=== PATIENT | male | born 1995 | race Caucasian/White ===

== ENCOUNTER → 2016-06-30 | Outpatient (REF) | payer OTHER | LOC: M LAB REF 17:12 | PROVIDERS: ATTEND Physician Assistant | DX: R50.9 Fever, unspecified (principal) ==

== ENCOUNTER → 2016-12-24 | Outpatient (CLI) | payer OTHER ==
[2016-12-24 13:27] LABS: BASO % 0.5 % (0.0-1.0); EOS # 0.1 K/mm3 (0.0-0.50); EOS % 1.2 % (0.0-3.0); LARGE UNSTAINED CELL # 0.1 K/mm3 (0.0-0.4); LYMPH # 2.4 K/mm3 (1.5-6.5); LYMPH % 37.9 % (24.0-44.0); MEAN CORPUSCULAR HEMOGLOBIN 28.8 pg (27.0-33.0); MEAN CORPUSCULAR HGB CONC 34.4 g/dl (32.0-36.5); MEAN CORPUSCULAR VOLUME 83.5 fl (80.0-96.0); MONO # 0.3 K/mm3 (0.0-0.8); MONO % 4.6 % (0.0-5.0); NEUTROPHILS # 3.3 K/mm3 (1.8-7.7); NEUTROPHILS % 53.9 % (36.0-66.0); PLATELET COUNT, AUTOMATED 288 k/mm3 (150-450); RED CELL DISTRIBUTION WIDTH 12.8 % (11.5-14.5); WHITE BLOOD COUNT 6.1 K/mm3 (4.0-10.0)
[2016-12-24 13:36] LABS: ALBUMIN 4.3 GM/DL (3.2-5.2); ALKALINE PHOSPHATASE 66 U/L (45-117); ALT/SGPT 32 U/L (12-78); ANION GAP 8 MEQ/L (8-16); AST/SGOT 17 U/L (15-37); BILIRUBIN,TOTAL 0.7 MG/DL (0.2-1.0); BLOOD UREA NITROGEN 15 MG/DL (7-18); CALCIUM LEVEL 9.5 MG/DL (8.5-10.1); CARBON DIOXIDE LEVEL 28 MEQ/L (21-32); CHLORIDE LEVEL 104 MEQ/L (98-107); CHOLESTEROL LEVEL 187 MG/DL (<200); CREATININE FOR GFR 1.09 MG/DL (0.70-1.30); GLOMERULAR FILTRATION RATE > 60.0 (>60); GLUCOSE, FASTING 73 MG/DL (70-105); POTASSIUM SERUM 4.4 MEQ/L (3.5-5.1); SODIUM LEVEL 140 MEQ/L (136-145); TOTAL PROTEIN 7.6 GM/DL (6.4-8.2); TRIGLYCERIDES LEVEL 63 MG/DL (<150)
== END ==
LOC: M WUC 08:34
PROVIDERS: ATTEND Nurse Practitioner Family
DX: Z00.00 Encounter for general adult medical examination without abnormal findings (principal); Z13.220 Encounter for screening for lipoid disorders

== ENCOUNTER → 2017-01-18 | Outpatient (CLI) | payer BC, OTHER ==
--- NOTE | 2017-01-18 12:23 | REP ---
LEFT CLAVICLE, TWO VIEWS: HISTORY: Contusion. There is a nondisplaced fracture of the middle third of the left clavicle. There is no dislocation. The joint spaces are normal in appearance. IMPRESSION: Nondisplaced fracture of the middle third of the left clavicle. Signed by Feroz Benito MD 01/18/2017 12:28 P
== END ==
LOC: M WUC 11:17
PROVIDERS: ATTEND Physician Assistant
DX: S40.012A Contusion of left shoulder, initial encounter (principal); X58.XXXA Exposure to other specified factors, initial encounter; Y92.89 Other specified places as the place of occurrence of the external cause; Y99.9 Unspecified external cause status

== ENCOUNTER → 2017-03-05 | Outpatient (CLI) | payer OTHER, BC ==
--- NOTE | 2017-03-05 15:53 | REP ---
Left clavicle two views: There is a minimally displaced midshaft fracture. There is no widening of the acromioclavicular joint. There are no calcifications or foreign bodies. The glenohumeral joint is unremarkable. Signed by Dyllan Gant MD 03/05/2017 03:44 P
== END ==
LOC: M WUC 14:42
PROVIDERS: ATTEND Physician Assistant
DX: M25.519 Pain in unspecified shoulder (principal)

== ENCOUNTER 2018-06-20 10:58 | Inpatient (IN) | payer BC, OTHER ==
[~2018-06-20] VITALS: Ht 177.8 cm; Wt 114.8 kg
[2018-06-20] MEDS ORDERED: ALEV220C2 PO (11:13)
[2018-06-20 11:29] LABS: BASO % 0.2 % (0.0-1.0); HEMATOCRIT 46.2 % (42.0-52.0); HEMOGLOBIN 15.6 g/dl (13.5-17.5); LYMPH # 1.3 10^3/uL (1.5-6.5); LYMPH % 7.7 % (24.0-44.0); MEAN CORPUSCULAR HEMOGLOBIN 27.9 pg (27.0-33.0); MEAN CORPUSCULAR HGB CONC 33.8 g/dl (32.0-36.5); MEAN CORPUSCULAR VOLUME 82.5 fl (80.0-96.0); MONO # 0.8 10^3/uL (0.0-0.8); MONO % 4.7 % (0.0-5.0); NEUTROPHILS # 14.3 10^3/uL (1.8-7.7); NEUTROPHILS % 86.9 % (36.0-66.0); PLATELET COUNT, AUTOMATED 249 10^3/uL (150-450); WHITE BLOOD COUNT 16.4 10^3/uL (4.0-10.0)
[2018-06-20] MEDS ORDERED: NS 3,270 ML in APPROPRIATE DILUENT 1 EA IV ONE (11:30)
[2018-06-20] MEDS ORDERED: ACETAMINOPHEN 325 MG TAB PO ONE ×2 (11:30→16:15)
[2018-06-20] MEDS ORDERED: KETOROLAC 30 MG/ML VIAL (J1885) IV ONE (11:30)
[2018-06-20] MEDS ORDERED: ONDANSETRON 4MG/2ML VIAL (J2405) IV ONE (11:30)
[2018-06-20 11:56] LABS: INFLUENZA A AMPLIFICATION NEGATIVE (NEGATIVE); INFLUENZA B AMPLIFICATION NEGATIVE (NEGATIVE)
[2018-06-20 12:11] LABS: ALBUMIN 3.7 GM/DL (3.2-5.2); BILIRUBIN,DIRECT 0.2 MG/DL (0.0-0.2); BILIRUBIN,TOTAL 0.6 MG/DL (0.2-1.0); CALCIUM LEVEL 8.7 MG/DL (8.5-10.1); CREATININE FOR GFR 1.58 MG/DL (0.70-1.30); GLOMERULAR FILTRATION RATE 57.6 (>60); POTASSIUM SERUM 3.3 MEQ/L (3.5-5.1); TOTAL PROTEIN 7.9 GM/DL (6.4-8.2)
[2018-06-20] MEDS ORDERED: ISOVUE-370 76% 100ML VIAL (Q9967) As Ordered ONE (12:19)
--- NOTE | 2018-06-20 12:53 | REP ---
Clinical: Periumbilical and lower abdominal pain. Technique: Slow contrast enhanced images from the lung bases to the pubic symphysis using 100 ml Isovue 370 intravenous contrast material with coronal and sagittal re-formations. Findings: Mucosal thickening involving the colon and predominantly the ascending through transverse colon with pericolonic inflammatory stranding and few scattered pericecal lymph nodes is most compatible with infectious/inflammatory colitis. Normal terminal ileum and appendix are identified. Small bowel is unremarkable. No obstruction. No free air. Liver, spleen, pancreas, gallbladder, bilateral adrenal glands and kidneys are normal. Pelvis demonstrates normal bladder and age appropriate prostate/seminal vesicles. Small amount of free fluid in the pelvis consistent with the above mentioned acute colitis. Abdominal aorta and vasculature normal. Surrounding musculoskeletal structures are intact. Lung bases are clear. Impression: Findings most compatible with acute infectious/inflammatory colitis predominantly involving the cecum through transverse colon. Electronically Signed by Dario Sarmiento MD 06/20/2018 12:46 P
[2018-06-20 14:12] LABS: BILIRUBIN, URINE MANUAL NEGATIVE (NEGATIVE); GLUCOSE, URINE (UA) MANUAL NEGATIVE (NEGATIVE); KETONE, URINE MANUAL NEGATIVE (NEGATIVE); UROBILINOGEN, URINE MANUAL NORMAL (NORMAL)
[2018-06-20 14:19] LABS: BACTERIA, URINE NONE SEEN; HYALINE CAST, URINE NONE SEEN /lpf (0-1); RBC, URINE 0-1 /hpf (0-3); SQUAMOUS EPITHELIAL CELL URINE SMALL AMOUNT /hpf (SMALL AMT)
[2018-06-20] MEDS ORDERED: VANCOMYCIN HCL 1,000 MG, VIAL MATE ADAPTER 1 EACH in D5W 250 ML IV ONE ×2 (15:15→22:00)
[2018-06-20] MEDS ORDERED: AZITHROMYCIN INJ 500 MG, VIAL MATE ADAPTER 1 EACH in D5W 250 ML IV ONE (15:15)
[2018-06-20] MEDS ORDERED: PIPERACILLIN/TAZOBACTAM SOD 4.5 GM in D5W MINI-BAG PLUS 50 ML IV ONE (15:15)
[2018-06-20] MEDS ORDERED: ALEV220T22 PO (15:51)
[2018-06-20] MEDS ORDERED: ONDANSETRON 4 MG TAB (S0181) PO PRN (16:30)
[2018-06-20] MEDS ORDERED: ACETAMINOPHEN TAB 650MG DOSE (2X325MG) PO PRN (16:30)
[2018-06-20] MEDS ORDERED: NS 1,000 ML IV ONE (18:00)
--- NOTE | 2018-06-20 18:33 | REP ---
Clinical: Fever and sepsis . Comparison: 06/30/2016 . Findings: The mediastinum and cardiac silhouette are stable and within normal limits for portable technique. The lung reyes are clear without acute consolidation, effusion, or pneumothorax. Skeletal structures are intact. Impression: No acute cardiopulmonary process appreciated. Electronically Signed by Dario Sarmiento MD 06/20/2018 06:23 P
[2018-06-20] MEDS ORDERED: VANCOMYCIN HCL 750 MG, VIAL MATE ADAPTER 1 EACH in D5W 250 ML IV SCH (18:45)
[2018-06-20] MEDS ORDERED: POTASSIUM CHLORIDE 10 MEQ SR TABLET PO ONE (18:45)
--- NOTE | 2018-06-20 18:46 | HPEPDOC ---
General Date of Admission Jun 20, 2018 at 15:23 Primary Care Physician: [facility] Attending Physician: EH PHOENIX MD Chief Complaint The patient is a 23-year-old male admitted with a reason for visit of Diarrhea,Sepsis. History of Present Illness 23-year-old male with past medical history presents to the ER for 3 days of fever, chills, watery diarrhea, lower abdominal cramping. He denies any recent travel or changes in meds or sick contacts, however states that his symptoms started a few hours after eating out at the [employer] on Wednesday. He ate nachos, cheese sauce, jalapenos, and afterwards started experiencing a headache, which then worsened with diarrhea on Wednesday morning. He believes his culprit could also possibly be spoiled milk which he accidentally drank on Wednesday afternoon "it had curds in it and was straight from a cow." He states his brother at home also has similar but milder symptoms at home. In ER, noted to be septic and positive for EPEC & Campylobacter. Will be admitted to Hospitalist service. Home Medications Scheduled PRN (Aleve Arthritis) 220 Mg Tab, 220 MG PO BID PRN for HEADACHE, (Reported) Allergies Coded Allergies: No Known Allergies (Verified , 10/30/02) Past Medical History Medical History none Surgical History Left distal radius shaft fracture '02 Family History HTN, DM, HLD, CAD, cancer on both sides Social History Denies alcohol or tobacco or illicit substances. Is sexually active, unprotected sex with 4 partners since age 16 Review of Systems Other systems Constitutional: Admits fever, & chills. No night sweats, weight loss Eyes: Denies eye pain, vision change ENT: Admits headaches. No ear pain, dysphagia Skin: Denies any rashes or lesions Pulmonary: Denies dyspnea, cough, wheezing Cardiac: Denies chest pain, palpitations. Admits lightheadedness GI: Denies nausea, vomiting. Admits crampy abdominal pain with diarrhea. Pt unsure of melena or hematochezia : Denies dysuria, hematuria Neurologic: Denies numbness/tingling Physical Examination Other physical findings General exam: Mildly uncomfortable, A&O 3, fully conversant Eye exam: PERRLA, EOMI ENT: Atraumatic, normocephalic, mucous membranes dry, tongue midline, no pharyngeal edema Neck: Supple, no JVD, no adenopathy Cardiac: Tachycardic in regular rhythm, normal S1 & S2, no murmurs Respiratory: CTAB, good air exchange, no wheezing, rhonchi, or rales Abdomen: normoactive bowel sounds, soft, mildly tender to palpation bilateral lower quadrants, nondistended Extremity: 2+ radial pulses, no edema, clubbing, cyanosis, or tenderness Skin: [place], warm, dry, no visible rash or lesions Neuro: Strength 5/5 x4, normal tone, sensation intact, normal speech, CN III-XII intact Psych: Normal mood and affect Vital Signs Vital Signs Date Time Temp Pulse Resp B/P (MAP) Pulse Ox O2 Delivery O2 Flow Rate FiO2 06/20/18 17:31 101.5 108 20 140/78 (98) 98 Room Air Laboratory Data Labs 24H Laboratory Tests 2 06/20/18 11:19: Immature Granulocyte % (Auto) 0.5, White Blood Count 16.4H, Red Blood Count 5.60, Hemoglobin 15.6, Hematocrit 46.2, Mean Corpuscular Volume 82.5, Mean C orpuscular Hemoglobin 27.9, Mean Corpuscular Hemoglobin Concent 33.8, Red Cell Distribution Width 12.4, Platelet Count 249, Neutrophils (%) (Auto) 86.9H, Lymphocytes (%) (Auto) 7.7L, Monocytes (%) (Auto) 4.7, Eosinophils (%) (Auto) 0.0, Basophils (%) (Auto) 0.2, Neutrophils # (Auto) 14.3H, Lymphocytes # (Auto) 1.3L, Monocytes # (Auto) 0.8, Eosinophils # (Auto) 0.0, Basophils # (Auto) 0.0, Nucleated Red Blood Cells % (auto) 0.0, Anion Gap 10, Glomerular Filtration Rate 57.6L, Calcium Level 8.7, Aspartate Amino Transf (AST/SGOT) 27, Alanine Aminotransferase (ALT/SGPT) 39, Alkaline Phosphatase 84, Total Bilirubin 0.6, Direct Bilirubin 0.2, Total Protein 7.9, Albumin 3.7, Albumin/Globulin Ratio 0.88L, Lipase 115, Influenza Type A (RT-PCR) NEGATIVE, Influenza Type B (RT-PCR) NEGATIVE 06/20/18 11:39: Lactic Acid Level 1.4 06/20/18 13:51: Urine Color (MICHAEL) YELLOW, Urine Appearance (MICHAEL) CLEAR, Urine pH (MICHAEL) 6.5, Urine Specific [place] (MICHAEL) > 1.060H, Urine Protein 1+H, Bedside Urine Glucose (UA) NEGATIVE, Bedside Urine Ketones (LAB) NEGATIVE, Bedside Urine Blood NEGATIVE, Bedside Urine Nitrite (LAB) NEGATIVE, Bedside Urine Bilirubin (LAB) NEGATIVE, Bedside Urine Urobilinogen (LAB) NORMAL, Bedside Urine Leukocyte Esterase (L NEGATIVE, Urine Sediment Examination PERFORMED, Urine RBC 0-1, Urine WBC 1-3, Urine Squamous Epithelial Cells SMALL AMOUNT, Urine Bacteria NONE SEEN, Urine Hyaline Casts NONE SEEN, Microscopic Urinalysis Comment CBC/BMP Laboratory Tests 06/20/18 11:19 Red Blood Count 5.60, Mean Corpuscular Volume 82.5, Mean Corpuscular Hemoglobin 27.9, Mean Corpuscular Hemoglobin Concent 33.8, Red Cell Distribution Width 12.4, Neutrophils (%) (Auto) 86.9 H, Lymphocytes (%) (Auto) 7.7 L, Monocytes (%) (Auto) 4.7, Eosinophils (%) (Auto) 0.0, Basophils (%) (Auto) 0.2, Neutrophils # (Auto) 14.3 H, Lymphocytes # (Auto) 1.3 L, Monocytes # (Auto) 0.8, Eosinophils # (Auto) 0.0, Basophils # (Auto) 0.0 Microbiology Microbiology 06/20/18 Blood Culture, Received Pending 06/20/18 Blood Culture, Received Pending 06/20/18 Gastrointestinal Tract Panel (PCR) - Final, Complete Campylobacter Enteropathogenic E.coli Assessment/Plan Sepsis 2/ Infectious colitis Tachycardic, fever 101, WBC at 16 GI panel positive for Campylobacter and enteropathogenic Escherichia coli, supported by CT of abdomen and pelvis. Continue supportive care on aggressive IV fluid hydration as he is dry on exam, Tylenol and ibuprofen for pain control. Given that he is not much improved after initial doses of broad-spectrum antibiotics in the ER, will continue on Vanco, Zosyn, azithromycin and de- escalation pending cultures. MRSA screen is pending. Monitor on full liquids diet, and plan to decrease IV fluids as he improves. Follow electrolytes and closely monitor for improvement. Given that he is also having lower pelvic pain and septic, there is concern for possible HIV associated with these GI infections. After further discussing with patient, he admits to being sexually active and having unprotected sex with multiple different partners. He is agreeable to getting tested for HIV. Acute kidney injury Normal renal function at baseline with CR of 0.9. CR is 1.5 on admission likely 2/2 dehydration and volume loss through diarrhea. Continue aggressive IV hydration and liquid diet. Hyponatremia Mild, level at 135 on admission likely 2/2 dehydration. Hydrate with IV and po intake. Hypokalemia Likely 2/2 GI losses continue supplementation monitoring of electrolytes DVT PPI X: TEDs SCDs Disposition: Admit to hospitalist service and closely monitor in PCU. Plan / VTE VTE Prophylaxis Ordered?: Yes GME ATTESTATION GME ATTESTATION My faculty preceptor for this patient encounter was physically present during the encounter and was fully available. All aspects of the patient interview, examination, medical decision making process, and medical care plan development were reviewed and approved by the faculty preceptor. The faculty preceptor is aware and concurs with the plan as stated in the body of this note and will attest to such by his/her cosignature. Attending Note Attending Note I have both independently examined this patient as well as reviewed the H&P. I have discussed with the resident the findings and plan of treeatment as documented in the resident's note TEMO DAVIS DO Jun 20, 2018 18:46 EH PHOENIX MD Jun 20, 2018 20:46
[2018-06-20] MEDS: NS 1,000 ML IV SCH ×2 (19:56→22:09)
[2018-06-20] MEDS: IBUPROFEN 600 MG TAB PO PRN (20:02)
[2018-06-20 21:35] VITALS: BP 133/69
--- NOTE | 2018-06-20 23:44 | PHACANCOPD ---
PHARMACY VANCOMYCIN DOSING Pt Demographics Demographics Patient Age:23 , Weight:116.100 , Gender: male Events Past 24 Hours Events Past 24 Hours: NO: Dialysis, Diuretic Therapy, Change in CrCl, Fever, Elevation in WBC, Pending Diagnostics, Pending Procedures, Other Vancomycin Vancomycin indication: SEPSIS Vancomycin Target Ranges: 15-20 mcg/ml Vancomycin Load Y/N: Yes Load Dose Date Time Vancomycin Load Dose: 2GM Date: 06/20/18 Time: 9223-4328 Vancomycin Dose Date: 06/21/18. Current Vancomycin Dose: [1GM IV Q12H (start 08:00)] Intermittent Dosing?: No Labs Labs Laboratory Tests 06/20/18 11:19 Red Blood Count 5.60, Mean Corpuscular Volume 82.5, Mean Corpuscular Hemoglobin 27.9, Mean Corpuscular Hemoglobin Concent 33.8, Red Cell Distribution Width 12.4, Neutrophils (%) (Auto) 86.9 H, Lymphocytes (%) (Auto) 7.7 L, Monocytes (%) (Auto) 4.7, Eosinophils (%) (Auto) 0.0, Basophils (%) (Auto) 0.2, Neutrophils # (Auto) 14.3 H, Lymphocytes # (Auto) 1.3 L, Monocytes # (Auto) 0.8, Eosinophils # (Auto) 0.0, Basophils # (Auto) 0.0 Micro Microbiology 06/20/18 Blood Culture, Received Pending 06/20/18 Blood Culture, Received Pending 06/20/18 Gastrointestinal Tract Panel (PCR) - Final, Complete Campylobacter Enteropathogenic E.coli Creatinine Clearance Date:06/20/18. Creatinine Clearance: [>60 ml/min]. Assessment and Plan Maintaining Current Dose?: Yes Reason for dose change: No Dose Change Pharmacist Note Pharmacist Note Date: 06/20/18. PharmD note: VANCO 2GM SLOW LOAD VIA THE ER. FOLLOWED BY VANCO 1GM IV Q12H STARTING AT 8AM 06/21/18. A VANCO TROUGH WILL BE ORDERED WHEN AT [facility] Jun 20, 2018 23:44
[2018-06-21] VITALS (7 sets, daily range): BP systolic 116–145; BP diastolic 60–92
[2018-06-21] MEDS: PIPERACILLIN/TAZOBACTAM SOD 3.375 GM in D5W MINI-BAG PLUS 50 ML IV SCH ×2 (02:03→05:34)
[2018-06-21] MEDS: NS 1,000 ML IV SCH ×2 (05:29→15:29)
[2018-06-21 05:53] LABS: HEMATOCRIT 38.5 % (42.0-52.0); MEAN CORPUSCULAR HEMOGLOBIN 27.4 pg (27.0-33.0); MEAN CORPUSCULAR VOLUME 83.2 fl (80.0-96.0); RED BLOOD COUNT 4.63 10^6/uL (4.30-6.10); WHITE BLOOD COUNT 6.5 10^3/uL (4.0-10.0)
[2018-06-21 05:58] LABS: HEMOGLOBIN 12.7 g/dl (13.5-17.5); PLATELET COUNT, AUTOMATED 147 10^3/uL (150-450)
[2018-06-21 06:23] LABS: BLOOD UREA NITROGEN 10 MG/DL (7-18); CALCIUM LEVEL 7.7 MG/DL (8.5-10.1); CARBON DIOXIDE LEVEL 24 MEQ/L (21-32); CHLORIDE LEVEL 110 MEQ/L (98-107); CREATININE FOR GFR 1.19 MG/DL (0.70-1.30); GLOMERULAR FILTRATION RATE > 60.0 (>60); GLUCOSE, FASTING 95 MG/DL (70-100); MAGNESIUM LEVEL 1.7 MG/DL (1.8-2.4); PHOSPHORUS LEVEL 2.3 MG/DL (2.5-4.9); POTASSIUM SERUM 3.7 MEQ/L (3.5-5.1); SODIUM LEVEL 141 MEQ/L (136-145)
[2018-06-21] MEDS ORDERED: CALCIUM CARBONATE 500 MG CHEW U/D PO ONE (08:00)
[2018-06-21] MEDS ORDERED: MAGNESIUM OXIDE 400 MG TAB (MAG-OX) PO ONE (08:00)
[2018-06-21] MEDS ORDERED: VANCOMYCIN HCL 1,000 MG, VIAL MATE ADAPTER 1 EACH in D5W 250 ML IV SCH (08:00)
[2018-06-21] MEDS ORDERED: POTASSIUM PHOSPHATE INJ 20 MMOL in D5W 250 ML IV ONE (09:00)
[2018-06-21] MEDS ORDERED: PENCICLOVIR 1% CREAM 5GM TOP PRN (09:30)
[2018-06-21] MEDS: IBUPROFEN 600 MG TAB PO PRN (12:23)
--- NOTE | 2018-06-21 14:09 | IPNPDOC ---
Text Note Date of Service The patient was seen on 06/21/18. NOTE S: Pt examined at bedside. Feeling much improved, no longer febrile, and lower abdominal cramping is almost fully resolved. However, diarrhea persists. He denies any blood in stools. Tolerating liquid diet well, but does not want to attempt a more advanced diet as of yet. No issues overnight. PE: General exam: NAD, resting comfortably, A&O 3, fully conversant Eye exam: PERRLA, EOMI ENT: Atraumatic, normocephalic, MMM Cardiac: RRR, normal S1 & S2, no murmurs Respiratory: CTAB, good air exchange, no wheezing, rhonchi, or rales Abdomen: normoactive bowel sounds, soft, ND, minimally tender to palpation bilateral lower quadrants Extremity: 2+ radial pulses, no edema, clubbing, cyanosis, or tenderness Skin: [place], warm, dry, no visible rash or lesions Psych: Normal mood and affect A/P: Infectious colitis No longer septic. Continue IV Azithro and supportive care for positive Campylobacter & enteropathogenic Escherichia coli Patient tolerating liquid diet well, however does not want to attempt a more advanced diet yet. He has been encouraged to try solid food later today. Until then, will continue IVF as he continues to have diarrhea today Acute kidney injury Resolved with IVF Hypovolemic Hyponatremia Resolved with IVF and by mouth intake Metabolic derangements Likely 2/2 GI losses Hypokalemia is resolved with supplementation from admission. As noted to be hypocalcemic, hypophosphatemic, and hypomagnesemic today. All supplemented and will recheck tomorrow DVT PPI X: TEDs SCDs Disposition: Pending clinical improvement. Likely discharge 24-48 hours. VS,Fishbone, I+O VS, Fishbone, I+O Laboratory Tests 06/21/18 05:34 Red Blood Count 4.63, Mean Corpuscular Volume 83.2, Mean Corpuscular Hemoglobin 27.4, Mean Corpuscular Hemoglobin Concent 33.0, Red Cell Distribution Width 12.6 , Calcium Level 7.7 L Vital Signs Date Time Temp Pulse Resp B/P (MAP) Pulse Ox O2 Delivery O2 Flow Rate FiO2 06/21/18 12:00 98.8 87 17 132/76 (94) 96 06/20/18 18:22 Room Air I&O- Last 24 Hours up to 6 AM 06/21/18 06:00 Intake Total 3270 ml Output Total 0 ml Balance 3270 ml GME ATTESTATION GME ATTESTATION My faculty preceptor for this patient encounter was physically present during the encounter and was fully available. All aspects of the patient interview, examination, medical decision making process, and medical care plan development were reviewed and approved by the faculty preceptor. The faculty preceptor is aware and concurs with the plan as stated in the body of this note and will attest to such by his/her cosignature. TEMO DVAIS DO Jun 21, 2018 14:09
[2018-06-21] MEDS: AZITHROMYCIN INJ 500 MG, VIAL MATE ADAPTER 1 EACH in D5W 250 ML IV SCH (18:05)
[2018-06-22] MEDS: NS 1,000 ML IV SCH ×3 (05:31→21:40)
[2018-06-22] MEDS: IBUPROFEN 600 MG TAB PO PRN ×2 (05:31→17:07)
[2018-06-22 06:00] VITALS: BP 131/76
[2018-06-22 06:39] LABS: HEMATOCRIT 35.4 % (42.0-52.0); HEMOGLOBIN 12.1 g/dl (13.5-17.5); MEAN CORPUSCULAR HEMOGLOBIN 27.6 pg (27.0-33.0); MEAN CORPUSCULAR HGB CONC 34.2 g/dl (32.0-36.5); MEAN CORPUSCULAR VOLUME 80.6 fl (80.0-96.0); PLATELET COUNT, AUTOMATED 166 10^3/uL (150-450); RED BLOOD COUNT 4.39 10^6/uL (4.30-6.10); WHITE BLOOD COUNT 6.4 10^3/uL (4.0-10.0)
[2018-06-22 07:23] LABS: BLOOD UREA NITROGEN 6 MG/DL (7-18); CALCIUM LEVEL 8.3 MG/DL (8.5-10.1); CARBON DIOXIDE LEVEL 25 MEQ/L (21-32); CHLORIDE LEVEL 109 MEQ/L (98-107); CREATININE FOR GFR 0.93 MG/DL (0.70-1.30); GLOMERULAR FILTRATION RATE > 60.0 (>60); GLUCOSE, FASTING 99 MG/DL (70-100); MAGNESIUM LEVEL 1.8 MG/DL (1.8-2.4); PHOSPHORUS LEVEL 2.3 MG/DL (2.5-4.9); POTASSIUM SERUM 3.5 MEQ/L (3.5-5.1); SODIUM LEVEL 141 MEQ/L (136-145)
[2018-06-22] MEDS ORDERED: K-PHOS ORIGINAL (POT.ACID PHOSPHATE) 500MG TAB PO ONE (08:00)
[2018-06-22] MEDS ORDERED: POTASSIUM PHOSPHATE INJ 20 MMOL in D5W 250 ML IV ONE (09:00)
--- NOTE | 2018-06-22 10:45 | IPNPDOC ---
Text Note Date of Service The patient was seen on 06/22/18. NOTE S: Pt examined at bedside. Has been downgraded to MedSurg and overall doing b shital. Abd cramping has fully resolved, but he still does not have an appetite and is mostly drinking fluids and does not want to advance diet yet. Noted to be febrile 101.8 this am, and still having persistent diarrhea. Still requiring IVF and electrolyte supplementation. PE: General exam: NAD, resting comfortably, A&O 3, fully conversant Eye exam: PERRLA EOMI ENT: Atraumatic, normocephalic, MMM Cardiac: RRR, normal S1 & S2, no murmurs Respiratory: CTAB, good air exchange, no wheezing, rhonchi, or rales Abdomen: normoactive bowel sounds, soft, ND, nontender Extremity: 2+ radial pulses, no edema, clubbing, cyanosis, or tenderness Skin: [place], warm, dry, no visible rash or lesions Psych: Normal mood and affect A/P: Infectious colitis Continue IV Azithro and supportive care for +Campylobacter & enteropathogenic Escherichia coli continues to spike temps, 101.8 this am. Diarrhea persists with 5 loose BMs yesterday. Will test for CDiff. He denies all other sx for possible other infectious sources and WBC WNL overall feels better, abd pain resolved. CRP elevated at 15, will trend and consider restarting broad-spectrum antibiotics if no improvement Pt still has no appetite, currently on full liquids. He is encouraged to increase his po intake and will attempt solid food later today. D/C IVF once tolerating diet Metabolic derangements Likely 2/2 GI losses continue supplementation for potassium and phos. Reassess tomorrow ------ Acute kidney injury Resolved with IVF Hypovolemic Hyponatremia Resolved with IVF and by mouth intake DVT ppx: TEDs SCDs Disposition: Pending clinical improvement. Likely discharge 24-48 hours. VS,Fishbone, I+O VS, Fishbone, I+O Laboratory Tests 06/22/18 06:11 Red Blood Count 4.39, Mean Corpuscular Volume 80.6, Mean Corpuscular Hemoglobin 27.6, Mean Corpuscular Hemoglobin Concent 34.2, Red Cell Distribution Width 12.5, Calcium Level 8.3 L Vital Signs Date Time Temp Pulse Resp B/P (MAP) Pulse Ox O2 Delivery O2 Flow Rate FiO2 06/22/18 06:55 96.3 06/22/18 06:00 95 20 131/76 (94) 98 06/20/18 18:22 Room Air I&O- Last 24 Hours up to 6 AM 06/22/18 06:00 Intake Total 3496 ml Output Total 0 ml Balance 3496 ml GME ATTESTATION GME ATTESTATION My faculty preceptor for this patient encounter was physically present during the encounter and was fully available. All aspects of the patient interview, examination, medical decision making process, and medical care plan development were reviewed and approved by the faculty preceptor. The faculty preceptor is aware and concurs with the plan as stated in the body of this note and will attest to such by his/her cosignature. TEMO DAVIS DO Jun 22, 2018 10:45
[2018-06-22] MEDS: traMADol 50 MG TAB PO PRN ×2 (13:40→21:40)
[2018-06-22 14:00] VITALS: BP 140/88
[2018-06-22] MEDS: AZITHROMYCIN INJ 500 MG, VIAL MATE ADAPTER 1 EACH in D5W 250 ML IV SCH (17:08)
[2018-06-22 22:00] VITALS: BP 137/88
[2018-06-23 06:00] VITALS: BP 136/83
[2018-06-23] MEDS: IBUPROFEN 600 MG TAB PO PRN (06:13)
[2018-06-23 06:39] LABS: HEMATOCRIT 41.2 % (42.0-52.0); HEMOGLOBIN 13.7 g/dl (13.5-17.5); MEAN CORPUSCULAR HEMOGLOBIN 27.4 pg (27.0-33.0); MEAN CORPUSCULAR HGB CONC 33.3 g/dl (32.0-36.5); MEAN CORPUSCULAR VOLUME 82.4 fl (80.0-96.0); PLATELET COUNT, AUTOMATED 234 10^3/uL (150-450); WHITE BLOOD COUNT 8.1 10^3/uL (4.0-10.0)
[2018-06-23 07:12] LABS: BLOOD UREA NITROGEN 7 MG/DL (7-18); CALCIUM LEVEL 8.7 MG/DL (8.5-10.1); CARBON DIOXIDE LEVEL 27 MEQ/L (21-32); CHLORIDE LEVEL 106 MEQ/L (98-107); CREATININE FOR GFR 0.94 MG/DL (0.70-1.30); GLOMERULAR FILTRATION RATE > 60.0 (>60); GLUCOSE, FASTING 105 MG/DL (70-100); PHOSPHORUS LEVEL 3.1 MG/DL (2.5-4.9); POTASSIUM SERUM 3.5 MEQ/L (3.5-5.1); SODIUM LEVEL 140 MEQ/L (136-145)
[2018-06-23] MEDS ORDERED: POTASSIUM CHLORIDE 10 MEQ SR TABLET PO ONE (08:45)
--- NOTE | 2018-06-23 10:36 | DS.PDOC ---
Discharge Summary General Date of Admission Jun 20, 2018 at 15:23 Date of Discharge 06/23/18 Primary Care Physician: MARY GRIFFITHS MD [facility] Attending Physician: JOHN ROSALES DO Discharge Summary PROCEDURES PERFORMED DURING STAY: None. ADMITTING DIAGNOSES: 1. diarrhea, sepsis DISCHARGE DIAGNOSES: 1. Sepsis 2/2 infectious colitis 2. +Campylobacter & enteropathogenic Escherichia coli 3. Metabolic derangements 2/2 diarrhea 4. Acute kidney injury 2/2 dehydration 5. Hypovolemic hyponatremia migraines Hypovolemic Hyponatremia COMPLICATIONS/CHIEF COMPLAINT: Diarrhea,Sepsis. HISTORY OF PRESENT ILLNESS: 23-year-old male with past medical history presents to the ER for 3 days of fever, chills, watery diarrhea, lower abdominal cramping. He denies any recent travel or changes in meds or sick contacts, however states that his symptoms started a few hours after eating out at the [id number] on Wednesday. He ate nachos, cheese sauce, jalapenos, and afterwards started experiencing a headache, which then worsened with diarrhea on Wednesday morning. He believes his culprit could also possibly be spoiled milk which he accidentally drank on Wednesday afternoon "it had curds in it and was straight from a cow." He states his brother at home also has similar but milder symptoms at home. In ER, noted to be septic and positive for EPEC & Campylobacter. HOSPITAL COURSE: He was admitted and started on broad spectrum antibiotics. He was given aggressive IV fluid hydration, placed on full liquids diet. Antibiotics for de-escalation in the next morning, and his potassium, phosphorus, magnesium were all low and supplemented. Given the risk of these infections causing sepsis and patient with HIV, and patient's history of unprotected sex with multiple different partners, he agreed to get tested. HIV testing was negative. Of note, he was also found to be in acute renal failure with a creatinine of 1.5 on admission, whereas his baseline appears to be 0.9 this is likely 2/2 dehydration volume loss, and resolved with IV fluids. He was also found to be hyponatremic at 135 on admission, which also improved with IV fluids. Patient gradually advance his diet and was able to tolerate solid foods again. Was planned for discharge on 06/22, however spiked a temperature 101.8 and some nausea and persistent diarrhea. C. difficile testing was negative. He was continued on IV antibiotic and IV fluids. The next morning, he felt almost back to normal and requesting to go home. He remained hemodynamically stable and was cleared for discharge, advised to remain hydrated and follow-up with PCP within normal week and return to ER for emergency. He was updated on all his labs and results and all questions answered. DISCHARGE MEDICATIONS: Please see below. ALLERGIES: Please see below. PHYSICAL EXAMINATION ON DISCHARGE: VITAL SIGNS: Please see below. General exam: NAD, resting comfortably, A&O 3, fully conversant Eye exam: PERRLA, EOMI ENT: Atraumatic, normocephalic, MMM Cardiac: RRR, normal S1 & S2, no murmurs Respiratory: CTAB, good air exchange, no wheezing, rhonchi, or rales Abdomen: normoactive bowel sounds, soft, ND, nontender Extremity: 2+ radial pulses, no edema, clubbing, cyanosis, or tenderness Skin: [place], warm, dry, no visible rash or lesions Psych: Normal mood and affect LABORATORY DATA: Please see below. IMAGING: * 06/20/2018 CT abdomen and pelvis: Findings most compatible with acute infectious/inflammatory colitis predominantly involving the cecum through transverse colon. * 06/20/2018 CXR: No acute cardiopulmonary process appreciated. PROGNOSIS: Good ACTIVITY: As tolerated. DIET: Low-fat DISPOSITION: Home DISCHARGE INSTRUCTIONS: 1. Remain hydrated and return to ER for emergency 2. Follow-up with PCP within one week DISCHARGE CONDITION: Stable. TIME SPENT ON DISCHARGE: Greater than 35 minutes. Vital Signs/I&Os Vital Signs Date Time Temp Pulse Resp B/P (MAP) Pulse Ox O2 Delivery O2 Flow Rate FiO2 06/23/18 06:00 97.3 87 20 136/83 (100) 98 06/20/18 18:22 Room Air I&O- Last 24 Hours up to 6 AM 06/23/18 05:59 Intake Total 3960 ml Balance 3960 ml Laboratory Data Labs 24H Laboratory Tests 2 06/23/18 06:19: Nucleated Red Blood Cells % (auto) 0.0, Anion Gap 7L, Glomerular Filtration Rate > 60.0, Blood Urea Nitrogen 7, Creatinine 0.94, Sodium Level 140, Potassium Level 3.5, Chloride Level 106, Carbon Dioxide Level 27, Calcium Level 8.7, Phosphorus Level 3.1#, Magnesium Level 2.0, C-Reactive Protein, Quantitative 16.70H CBC/BMP Laboratory Tests 06/23/18 06:19 Red Blood Count 5.00, Mean Corpuscular Volume 82.4, Mean Corpuscular Hemoglobin 27.4, Mean Corpuscular Hemoglobin Concent 33.3, Red Cell Distribution Width 12.9, Calcium Level 8.7 Microbiology Microbiology 06/20/18 Blood Culture - Preliminary, Resulted No Growth after 48 hours. All Specime... 06/20/18 Blood Culture - Preliminary, Resulted No Growth after 48 hours. All Specime... 06/20/18 Gastrointestinal Tract Panel (PCR) - Final, Complete Campylobacter Enteropathogenic E.coli 06/22/18 MRSA Screen, Received Pending Discharge Medications Scheduled PRN (Aleve Arthritis) 220 Mg Tab, 220 MG PO BID PRN for HEADACHE, (Reported) Allergies Coded Allergies: No Known Allergies (Verified , 10/30/02) GME ATTESTATION GME ATTESTATION My faculty preceptor for this patient encounter was physically present during the encounter and was fully available. All aspects of the patient interview, examination, medical decision making process, and medical care plan development were reviewed and approved by the faculty preceptor. The faculty preceptor is a cochran and concurs with the plan as stated in the body of this note and will attest to such by his/her cosignature. TEMO DAVIS DO Jun 23, 2018 10:35
[2018-06-23] MEDS ORDERED: AZIT500T2 PO (11:23)
== END 2018-06-23 12:10 | disposition home or self-care (01) | DRG 720 ==
LOC: M ED 10:58 → M ED INP 15:23 → M PCU 21:38 → M MS5PR 06-21 21:41
PROVIDERS: ADMIT Internal Medicine; ATTEND Internal Medicine
DX: A41.9 Sepsis, unspecified organism (principal); N17.9 Acute kidney failure, unspecified; A04.5 Campylobacter enteritis; E87.1 Hypo-osmolality and hyponatremia; A04.0 Enteropathogenic Escherichia coli infection; E83.42 Hypomagnesemia; E83.51 Hypocalcemia; E83.39 Other disorders of phosphorus metabolism; E87.6 Hypokalemia; E86.0 Dehydration

== ENCOUNTER → 2019-12-18 | Outpatient (REF) | payer BC, OTHER ==
[~2019-12-18] MED LIST: ALEV220C2 PO; ALEV220T22 PO; AZIT500T5 PO
== END ==
LOC: M LAB REF 14:00
PROVIDERS: ATTEND Physician Assistant
DX: D22.4 Melanocytic nevi of scalp and neck (principal)

== ENCOUNTER → 2021-01-30 | Outpatient (CLI) | payer BC, OTHER ==
[2021-01-30 18:01] LABS: ALT/SGPT 49 U/L (12-78); BILIRUBIN,TOTAL 0.6 MG/DL (0.2-1.0); BLOOD UREA NITROGEN 16 MG/DL (7-18); CALCIUM LEVEL 9.6 MG/DL (8.5-10.1); CARBON DIOXIDE LEVEL 26 MEQ/L (21-32); CHLORIDE LEVEL 106 MEQ/L (98-107); CHOLESTEROL LEVEL 218 MG/DL (<200); CHOLESTEROL RISK RATIO 3.963 (<5); CREATININE FOR GFR 1.12 MG/DL (0.70-1.30); GLOMERULAR FILTRATION RATE > 60.0 (>60); GLUCOSE, FASTING 94 MG/DL (70-100); HDL CHOLESTEROL 55 MG/DL (>40); LDL CHOLESTEROL 144 MG/DL (<100); NON-HDL-C 163 MG/DL; POTASSIUM SERUM 4.1 MEQ/L (3.5-5.1); SODIUM LEVEL 138 MEQ/L (136-145); TOTAL PROTEIN 7.3 GM/DL (6.4-8.2); TRIGLYCERIDES LEVEL 95 MG/DL (<150)
== END ==
LOC: M WUC 11:54
PROVIDERS: ATTEND Nurse Practitioner Family
DX: Z00.00 Encounter for general adult medical examination without abnormal findings (principal)

== ENCOUNTER → 2021-02-06 | Outpatient (REF) | payer BC, OTHER | LOC: M LAB REF 19:00 | PROVIDERS: ATTEND Physician Assistant | DX: D22.9 Melanocytic nevi, unspecified (principal) ==

== ENCOUNTER 2021-07-24 07:51 | Emergency (ER) | payer BC, OTHER ==
[~2021-07-24] VITALS: Ht 177.8 cm; Wt 121.9 kg
[2021-07-24 11:03] LABS: BASO % 0.4 % (0.0-1.0); EOS % 0.4 % (0.0-3.0); HEMATOCRIT 46.3 % (42.0-52.0); HEMOGLOBIN 15.5 g/dl (13.5-17.5); LYMPH % 29.2 % (24.0-44.0); MEAN CORPUSCULAR HEMOGLOBIN 27.8 pg (27.0-33.0); MEAN CORPUSCULAR HGB CONC 33.5 g/dl (32.0-36.5); MEAN CORPUSCULAR VOLUME 83.1 fl (80.0-96.0); MONO # 0.4 10^3/uL (0.0-0.8); MONO % 5.9 % (2.0-8.0); NEUTROPHILS # 4.4 10^3/uL (1.5-8.5); NEUTROPHILS % 63.5 % (36.0-66.0); PLATELET COUNT, AUTOMATED 313 10^3/uL (150-450); RED BLOOD COUNT 5.57 10^6/uL (4.30-6.10)
[2021-07-24 11:28] LABS: BLOOD UREA NITROGEN 16 MG/DL (7-18); C REACTIVE PROTEIN QUANTITATIV 0.69 MG/DL (0.00-0.30); CALCIUM LEVEL 9.3 MG/DL (8.5-10.1); CARBON DIOXIDE LEVEL 27 MEQ/L (21-32); CHLORIDE LEVEL 109 MEQ/L (98-107); CREATININE FOR GFR 1.04 MG/DL (0.70-1.30); GLOMERULAR FILTRATION RATE > 60.0 (>60); GLUCOSE, FASTING 92 MG/DL (70-100); POTASSIUM SERUM 4.6 MEQ/L (3.5-5.1); SODIUM LEVEL 139 MEQ/L (136-145)
[2021-07-24 11:33] LABS: ERYTHROCYTE SEDIMENTATION RATE 4 mm/hr (0-15)
[2021-07-24] MEDS ORDERED: ISOVUE-370 76% 100ML VIAL As Ordered ONE (11:51)
[2021-07-24 13:05] VITALS: BP 160/100
== END 2021-07-24 13:14 | disposition home or self-care (01) ==
LOC: M ED 07:51
DX: R59.0 Localized enlarged lymph nodes (principal)
CPT/HCPCS: 36415; 70491; 80048; 85025; 85652; 86140; 87880; 99284; Q9967

== ENCOUNTER → 2021-12-24 | Outpatient (CLI) | payer OTHER, BC ==
[2021-12-24 11:53] LABS: BASO % 0.4 % (0.0-1.0); EOS # 0.1 10^3/uL (0.0-0.5); EOS % 1.6 % (0.0-3.0); HEMATOCRIT 44.9 % (42.0-52.0); LYMPH # 2.4 10^3/uL (1.5-5.0); LYMPH % 30.7 % (24.0-44.0); MEAN CORPUSCULAR HGB CONC 33.4 g/dl (32.0-36.5); MEAN CORPUSCULAR VOLUME 83.8 fl (80.0-96.0); MONO # 0.4 10^3/uL (0.0-0.8); MONO % 5.6 % (2.0-8.0); NEUTROPHILS # 4.7 10^3/uL (1.5-8.5); NEUTROPHILS % 61.3 % (36.0-66.0); PLATELET COUNT, AUTOMATED 324 10^3/uL (150-450); RED BLOOD COUNT 5.36 10^6/uL (4.30-6.10); WHITE BLOOD COUNT 7.7 10^3/uL (4.0-10.0)
[2021-12-24 12:08] LABS: ALBUMIN 3.8 GM/DL (3.2-5.2); ALT/SGPT 42 U/L (12-78); BILIRUBIN,TOTAL 0.8 MG/DL (0.2-1.0); BLOOD UREA NITROGEN 16 MG/DL (7-18); CALCIUM LEVEL 9.3 MG/DL (8.5-10.1); CARBON DIOXIDE LEVEL 27 MEQ/L (21-32); CHLORIDE LEVEL 108 MEQ/L (98-107); CREATININE FOR GFR 1.24 MG/DL (0.70-1.30); GLOMERULAR FILTRATION RATE > 60.0 (>60); GLUCOSE, FASTING 100 MG/DL (70-100); POTASSIUM SERUM 4.2 MEQ/L (3.5-5.1); SODIUM LEVEL 139 MEQ/L (136-145); TOTAL PROTEIN 7.4 GM/DL (6.4-8.2)
== END ==
LOC: M WUC 09:06
PROVIDERS: ATTEND Nurse Practitioner Family
DX: R51.9 Headache, unspecified (principal)

== ENCOUNTER → 2021-12-30 | Outpatient (CLI) | payer OTHER, BC | LOC: M WUC 11:04 | PROVIDERS: ATTEND Nurse Practitioner Family | DX: M79.642 Pain in left hand (principal) ==

== ENCOUNTER → 2022-02-28 | Outpatient (CLI) | payer BC, OTHER ==
[2022-02-28 10:55] LABS: BASO % 0.1 % (0.0-1.0); EOS # 0.1 10^3/uL (0.0-0.5); EOS % 1.3 % (0.0-3.0); HEMATOCRIT 47.7 % (42.0-52.0); HEMOGLOBIN 15.3 g/dl (13.5-17.5); LYMPH # 2.2 10^3/uL (1.5-5.0); MEAN CORPUSCULAR HEMOGLOBIN 27.4 pg (27.0-33.0); MEAN CORPUSCULAR HGB CONC 32.1 g/dl (32.0-36.5); MEAN CORPUSCULAR VOLUME 85.5 fl (80.0-96.0); MONO # 0.5 10^3/uL (0.0-0.8); MONO % 7.1 % (2.0-8.0); NEUTROPHILS # 4.1 10^3/uL (1.5-8.5); NEUTROPHILS % 59.2 % (36.0-66.0); PLATELET COUNT, AUTOMATED 345 10^3/uL (150-450); RED BLOOD COUNT 5.58 10^6/uL (4.30-6.10); WHITE BLOOD COUNT 6.9 10^3/uL (4.0-10.0)
[2022-02-28 11:19] LABS: HEMOGLOBIN A1c 5.3 %
[2022-02-28 11:49] LABS: ALT/SGPT 59 U/L (12-78); BILIRUBIN,TOTAL 0.8 MG/DL (0.2-1.0); BLOOD UREA NITROGEN 14 MG/DL (7-18); CALCIUM LEVEL 9.7 MG/DL (8.5-10.1); CARBON DIOXIDE LEVEL 28 MEQ/L (21-32); CHLORIDE LEVEL 103 MEQ/L (98-107); CHOLESTEROL LEVEL 221 MG/DL (<200); CHOLESTEROL RISK RATIO 3.745 (<5); CREATININE FOR GFR 1.19 MG/DL (0.70-1.30); FREE T4 1.02 NG/DL (0.76-1.46); GLOMERULAR FILTRATION RATE > 60.0 (>60); GLUCOSE, FASTING 93 MG/DL (70-100); HDL CHOLESTEROL 59 MG/DL (>40); LDL CHOLESTEROL 141 MG/DL (<100); NON-HDL-C 162 MG/DL; POTASSIUM SERUM 4.4 MEQ/L (3.5-5.1); SODIUM LEVEL 136 MEQ/L (136-145); TOTAL PROTEIN 7.6 GM/DL (6.4-8.2); TRIGLYCERIDES LEVEL 103 MG/DL (<150); URIC ACID 6.9 MG/DL (3.5-7.2)
[2022-03-02 08:57] LABS: TOTAL 25(OH) VITAMIN D 23.1 NG/ML (30.0-100.0)
== END ==
LOC: M LAB 10:22
PROVIDERS: ATTEND Nurse Practitioner Family
DX: E66.01 Morbid (severe) obesity due to excess calories (principal)

== ENCOUNTER → 2023-07-27 | Outpatient (CLI) | payer BC ==
[2023-07-27 18:17] LABS: BASO % 0.4 % (0.0-1.0); EOS # 0.2 10^3/uL (0.0-0.5); EOS % 1.9 % (0.0-3.0); HEMATOCRIT 46.9 % (42.0-52.0); HEMOGLOBIN 15.4 g/dl (13.5-17.5); LYMPH # 3.6 10^3/uL (1.5-5.0); LYMPH % 34.6 % (24.0-44.0); MEAN CORPUSCULAR HEMOGLOBIN 27.8 pg (27.0-33.0); MEAN CORPUSCULAR HGB CONC 32.8 g/dl (32.0-36.5); MEAN CORPUSCULAR VOLUME 84.7 fl (80.0-96.0); MONO # 0.6 10^3/uL (0.0-0.8); MONO % 6.2 % (2.0-8.0); NEUTROPHILS # 5.8 10^3/uL (1.5-8.5); NEUTROPHILS % 56.5 % (36.0-66.0); PLATELET COUNT, AUTOMATED 378 10^3/uL (150-450); RED BLOOD COUNT 5.54 10^6/uL (4.30-6.10); WHITE BLOOD COUNT 10.3 10^3/uL (4.0-10.0)
[2023-07-27 18:42] LABS: LIPASE 43 U/L (12-53)
[2023-07-27 18:44] LABS: AMYLASE 37 U/L (30-118)
[2023-07-27 18:45] LABS: ALKALINE PHOSPHATASE 81 U/L (46-116); ALT/SGPT 35 U/L (7.0-40); AST/SGOT 17 U/L (<34); BILIRUBIN,TOTAL 0.3 MG/DL (0.3-1.2); BLOOD UREA NITROGEN 22 MG/DL (9-23); CALCIUM LEVEL 9.8 MG/DL (8.5-10.1); CARBON DIOXIDE LEVEL 29 MMOL/L (20-31); CHLORIDE LEVEL 103 MMOL/L (98-107); GLOMERULAR FILTRATION RATE > 60.0 (>60); GLUCOSE, FASTING 84 MG/DL (60-100); POTASSIUM SERUM 4.5 MMOL/L (3.5-5.1); SODIUM LEVEL 137 MMOL/L (136-145)
== END ==
LOC: M PLAIMG 16:27
PROVIDERS: ATTEND Registered Nurse
DX: R07.89 Other chest pain (principal)

== ENCOUNTER 2024-06-30 12:57 | Emergency (ER) | payer BC ==
[~2024-06-30] VITALS: Ht 180.3 cm; Wt 115.4 kg
[2024-06-30 14:56] LABS: BASO % 0.2 % (0.0-1.0); EOS # 0.1 10^3/uL (0.0-0.5); EOS % 0.7 % (0.0-3.0); HEMATOCRIT 49.1 % (42.0-52.0); HEMOGLOBIN 16.3 g/dl (13.5-17.5); LYMPH # 2.3 10^3/uL (1.5-5.0); LYMPH % 27.4 % (24.0-44.0); MEAN CORPUSCULAR HEMOGLOBIN 27.8 pg (27.0-33.0); MEAN CORPUSCULAR HGB CONC 33.2 g/dl (32.0-36.5); MEAN CORPUSCULAR VOLUME 83.8 fl (80.0-96.0); MONO # 0.5 10^3/uL (0.0-0.8); MONO % 5.9 % (2.0-8.0); NEUTROPHILS # 5.4 10^3/uL (1.5-8.5); NEUTROPHILS % 65.7 % (36.0-66.0); PLATELET COUNT, AUTOMATED 356 10^3/uL (150-450); RED BLOOD COUNT 5.86 10^6/uL (4.30-6.10); WHITE BLOOD COUNT 8.3 10^3/uL (4.0-10.0)
[2024-06-30 15:04] LABS: KETONE, URINE AUTO RFX NEGATIVE (NEGATIVE); LEUKOCYTE ESTERASE UR AUTO RFX NEGATIVE (NEGATIVE); NITRITE, URINE AUTO RFX NEGATIVE (NEGATIVE); RBC, URINE AUTO RFX 0 /HPF (0-3); SQUAM EPITHELIAL CELL UR AURFX 0 /HPF (0-6); WBC, URINE AUTO RFX 0 /HPF (0-3)
[2024-06-30 15:27] LABS: LIPASE 48 U/L (12-53)
[2024-06-30 15:28] LABS: CK-MB VALUE MASS < 1.0 NG/ML (<3.6)
[2024-06-30 15:30] LABS: ALBUMIN 4.2 G/DL (3.2-5.2); ALKALINE PHOSPHATASE 82 U/L (40-129); ALT/SGPT 50 U/L (7.0-40); AST/SGOT 18 U/L (<34); BILIRUBIN,DIRECT 0.2 MG/DL (<0.4); BILIRUBIN,TOTAL 0.5 MG/DL (0.3-1.2); TOTAL PROTEIN 7.6 G/DL (5.7-8.2)
[2024-06-30 15:33] LABS: CPK CREATINE PHOSPHOKINASE 138 U/L (46-171); MB/CK RELATIVE INDEX 0.72 (< OR =4)
[2024-06-30 16:37] VITALS: BP 131/72; TEMP 96.6; O2SAT 97
[2024-06-30] MEDS ORDERED: ISOVUE-370 76% 100ML VIAL As Ordered ONE (17:03)
[2024-06-30] MEDS ORDERED: COLA100C5 PO (17:42)
[2024-06-30] MEDS: MAGNESIUM CITRATE 300ML BTL PO ONE (17:45)
== END 2024-06-30 17:48 | disposition home or self-care (01) ==
LOC: M ED 12:57
DX: K56.41 Fecal impaction (principal); I25.84 Coronary atherosclerosis due to calcified coronary lesion; Z79.899 Other long term (current) drug therapy
CPT/HCPCS: 36415; 74177; 80047; 80076; 81001; 82550; 82553; 83690; 84484; 85025; 99284; Q9967

== ENCOUNTER → 2024-11-13 | Outpatient (CLI) | payer BC ==
[~2024-11-13] MED LIST changes: +COLA100C5 PO
== END ==
LOC: M WUC 09:06
PROVIDERS: ATTEND Nurse Practitioner Family
DX: M79.671 Pain in right foot (principal)

== ENCOUNTER → 2025-01-31 | Outpatient (CLI) | payer BC ==
[2025-01-31 14:22] LABS: BASO # 0.0 10^3/uL (0.0-0.2); BASO % 0.4 % (0.0-1.0); EOS # 0.1 10^3/uL (0.0-0.5); EOS % 0.9 % (0.0-3.0); LYMPH # 2.8 10^3/uL (1.5-5.0); LYMPH % 36.3 % (24.0-44.0); MONO # 0.5 10^3/uL (0.0-0.8); MONO % 6.0 % (2.0-8.0); NEUTROPHILS # 4.4 10^3/uL (1.5-8.5); NEUTROPHILS % 55.9 % (36.0-66.0); PLATELET COUNT, AUTOMATED 379 10^3/uL (150-450)
[2025-01-31 14:52] LABS: ALT/SGPT 35.0 U/L (7.0-40); AST/SGOT 21.0 U/L (<34); CALCIUM LEVEL 9.2 MG/DL (8.5-10.1); CARBON DIOXIDE LEVEL 27.0 MMOL/L (20-31); CHLORIDE LEVEL 103.0 MMOL/L (98-107); CHOLESTEROL LEVEL 220.0 MG/DL (<200); CHOLESTEROL RISK RATIO 3.42 (<5); CREATININE FOR GFR 1.13 MG/DL (0.70-1.30); GLOMERULAR FILTRATION RATE 89.1 (>60); LDL CHOLESTEROL 145.2 MG/DL (<100); NON-HDL-C 155.8 MG/DL; POTASSIUM SERUM 4.4 MMOL/L (3.5-5.1); SODIUM LEVEL 142.0 MMOL/L (136-145); TRIGLYCERIDES LEVEL 53.0 MG/DL (<150)
[2025-02-01 14:08] LABS: INSULIN LEVEL 11.4 uIU/mL (<=18.4)
== END ==
LOC: M WUC 10:39
PROVIDERS: ATTEND Nurse Practitioner Family
DX: Z00.00 Encounter for general adult medical examination without abnormal findings (principal); E66.9 Obesity, unspecified